=== PATIENT | male | born 1960 | race Caucasian/White ===

== ENCOUNTER 2023-09-28 14:24 | Outpatient (CLI) | payer MEDICAID ==
--- NOTE | 2023-09-28 15:23 | Sleep Patient Instructions ---
Sleep Center Visit Summary - Patient Visit Information Reason for Visit: Initial consult for evaluation of sleep disordered breathing and other sleep issues. - Patient Instructions Instructions Attached: Sleep Study, Sleep Study Home Monitor Additional Instructions: You will be completing a sleep study, either an in-lab polysomnography (PSG) or home sleep study (HST). You will follow-up in the sleep care office after the sleep study is completed to hear the results and talk about therapy, if needed. You will be called by our office staff to schedule this appointment, but you may contact us with any questions. - Clinic Information Contact: [facility] [address] [place] [id number] [email or web address] T: [phone]
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
[2023-09-28 15:34] VITALS: BP 142/90; O2SAT 98
== END 2023-09-28 14:25 | disposition home or self-care (01) ==
LOC: SC 14:24
PROVIDERS: ATTEND Nurse Practitioner Family
DX: R53.83 Other fatigue (principal); G47.8 Other sleep disorders; R06.83 Snoring; R06.81 Apnea, not elsewhere classified; I10 Essential (primary) hypertension; E66.9 Obesity, unspecified; Z68.33 Body mass index [BMI] 33.0-33.9, adult; F90.9 Attention-deficit hyperactivity disorder, unspecified type
CPT/HCPCS: 99203; 99212

== ENCOUNTER 2023-10-30 19:19 | Outpatient (CLI) | payer MEDICAID | END 2023-10-30 19:20 | disposition home or self-care (01) | LOC: SC 19:19 | PROVIDERS: ATTEND Nurse Practitioner Family | DX: G47.33 Obstructive sleep apnea (adult) (pediatric) (principal); E66.9 Obesity, unspecified; Z68.33 Body mass index [BMI] 33.0-33.9, adult; G47.61 Periodic limb movement disorder | CPT/HCPCS: 95810 ==

== ENCOUNTER 2023-11-08 09:00 | Outpatient (CLI) | payer MEDICAID ==
--- NOTE | 2023-11-08 08:46 | SLEEP CARE CONSULTATION ---
Information from patient questionnaire entered by Brandy Ceballos. I have reviewed and concur with the information entered by Brandy Ceballos. This document represents the service I personally performed and the decisions made by , Deanne Cuevas ARNP. History of Present Illness Service Date and Time: 11/08/2023 0840 Initial [place] Sleepiness Scale score: 10 (09/20/23) Current [place] Sleepiness Scale score: 7 (11/08/23) Additional HPI information: VAHID MATAMOROS returns via video appointment for follow up and results of the recently performed polysomnography. The sleep study showed mild obstructive sleep apnea with an average AHI of 7.7 and sadie oxygen saturation of 87%. I explained the pathophysiology behind obstructive sleep apnea. We then spent quite a bit of time discussing different treatment options. For mild obstruc tive sleep apnea, surgery and oral appliance are alternatives to nasal CPAP therapy but in moderate or severe cases, nasal CPAP is the most effective and reliable treatment. Because apnea is primarily in supine position, then positional management therapy could be effective. Methods discussed such as positioning with pillows, using a T-shirt with tennis balls in the back, and shown commercial products that have a pillow format on back to prevent supine sleep. I reviewed the impact of weight changes on sleep apnea and strongly recommended losing weight. After some discussion, the patient opted to go with positional therapy. Patient was cautioned about risks of drowsy driving until sleepiness symptoms resolve. Patient denies drowsy driving. Sleep Study - Results Type of Sleep Study: Polysomnography (COMPLETED 10/30/23) Prior sleep studies: Yes (PATTIE CRUZ) Polysomnography/Home Sleep Study results: IMPRESSION: The quality of the study is good. The patient had slightly reduced sleep efficiency due to frequent awakenings during the night. The sleep architecture was abnormal for sleep fragmentation and reduced amount of time spent in slow wave sleep (N3). Respiratory monitoring showed mild o bstructive sleep apnea-hypopnea (AHI = 7.7) associated with frequent arousals, oxyhemoglobin desaturation and mild hypoxia (sadie oxygen saturation of 87%). The respiratory events occurred almost exclusively during supine sleep (supine AHI = 21.4; non-supine = 2.54). Snore was infrequent and light in intensity. There was moderate periodic leg movement of sleep not contributing to the sleep fragmentation. Cardiac rhythm was normal sinus rhythm without significant arrhythmia. No abnormal behavior (parasomnia) observed during the night. Allergies and Home Medications Known drug allergies: Yes (morphine) Drug allergies reviewed: Yes Home medication list reviewed: Yes (no changes) Allergy and home medication list: Allergies morphine Allergy (Verified 09/28/23 14:28) Home Medications Medication Instructions Recorded Confirmed Last Taken Type Aspirin [Vazalore] See Rx Instructions .ROUTE .COMPLEX 09/28/23 11/08/23 Unknown History Cholecalciferol (Vitamin D3) See Rx Instructions .ROUTE .COMPLEX 09/28/23 11/08/23 Unknown History [Vitamin D3] Levothyroxine [Synthroid] See Rx Instructions .ROUTE .COMPLEX 09/28/23 11/08/23 Unknown History Magnesium Oxide [Magnesium] See Rx Instructions .ROUTE .COMPLEX 09/28/23 11/08/23 Unknown History Meloxicam See Rx Instructions .ROUTE .COMPLEX 09/28/23 11/08/23 Unknown History Mv-Min/Folic/K1/Lycopen/Lutein See Rx Instructions .ROUTE .COMPLEX 09/28/23 11/08/23 Unknown History [Centrum Silver Men Tablet] Propranolol [Inderal] See Rx Instructions .ROUTE .COMPLEX 09/28/23 11/08/23 Unknown History Tizanidine HCl See Rx Instructions .ROUTE .COMPLEX 09/28/23 11/08/23 Unknown History Vitamin B2 See Rx Instructions .ROUTE .COMPLEX 09/28/23 11/08/23 Unknown History hydroCHLOROthiazide [Hydrodiuril] See Rx Instructions .ROUTE .COMPLEX 09/28/23 11/08/23 Unknown History Review of Systems Review of systems same as previous: Yes (NO CHANGE) Physical Exam Vital signs obtained and entered by: BRANDY De Leon MA Blood Pressure: 135/79 (PER PT) Height: 6 ft 1 in (PER PT) Weight: 250 lb (PER PT) Body Mass Index: 33.0 BMI Classification: Obese Impression and Plan 1. Obstructive Sleep Apnea-Hypopnea Syndrome, mild, with lowest oxygen saturation of 87%. Obviously this is the cause of the patients symptoms of unrefreshed sleep, and excessive daytime sleepiness. Positive pressure therapy could benefit hypertension and attention deficit. Since patients apnea is primarily in supine position, patient advised that he could try positional therapy and he agreed with plan. He is also advised to lose weight as this will reduce snoring and apnea. Follow up is scheduled in 1-2 months to check effectiveness and if further evaluation indicated such a repeat study in supine position only to see if additional treatment indicated. 2. Periodic limb movement, moderate, that did not fragment patients sleep. Per iodic limb movement of sleep (PLMS) is characterized by episodes of repetitive limb movements that occur during sleep and usually involve the lower limbs. The etiology is unknown. Sleep hygiene methods can also improve sleep as well as lifestyle changes such as regular exercise. Patient was advised that no treatment is needed at this time. If symptoms increase, then further evaluation is indicated. 3. Obesity, unspecified. Currently patients BMI is 33. Obesity increases the risk of apnea, CPAP pressure requirements and overall health risks especially cardiovascular and diabetes. Thus patient is advised to lose weight. * Positional therapy. * Attempt to lose weight. * Avoid supine sleep * The patient is again cautioned about driving until sleepiness completely resolves. * Return in 1-2 months. I will assess response to therapy at that time. Counseling Topics: Sleeping position, Weight loss health impact Follow up with Sleep Care in: 1-2 months Visit Type: Telehealth Video Video Type: Jeremy Patient Location: Home Location of Provider: Office Patient agrees and consents to this telehealth visit type: Yes Patient agrees to have their insurance billed: Yes Time Spent with Patient (minutes): 16 Provider Statement: I spent 100% of the Telehealth Video Call with the patient with greater than 50% spent counseling the patient and coordination of care.
[2023-11-08 08:50] VITALS: BP 135/79
== END 2023-11-08 09:01 | disposition home or self-care (01) ==
LOC: SC 09:00
PROVIDERS: ATTEND Nurse Practitioner Family
DX: G47.33 Obstructive sleep apnea (adult) (pediatric) (principal); G47.61 Periodic limb movement disorder; E66.9 Obesity, unspecified; Z68.33 Body mass index [BMI] 33.0-33.9, adult

== ENCOUNTER 2023-12-20 11:41 | Outpatient (CLI) | payer MEDICAID ==
--- NOTE | 2023-12-20 08:53 | SLEEP CARE CONSULTATION ---
Information from patient questionnaire entered by Brandy Ceballos. I have reviewed and concur with the information entered by Brandy Ceballos. This document represents the service I personally performed and the decisions made by me, Deanne Cuevas ARNP. History of Present Illness Service Date and Time: 12/20/2023 0840 Previous diagnosis: Mild, Obstructive Sleep Apnea-Hypopnea Syndrome AHI: 7.7 (in 10/30/2023) Reason for follow up: other (SIX WEEK F/U POSITIONAL) Prior sleep studies: Yes (PATTIE SEBASTIANFARHAT) Type of Sleep Study: Polysomnography (COMPLETED 10/30/23) HPI additional information: VAHID MATAMOROS was diagnosed to have mild, AHI 7.7, obstructive sleep apnea- hypopnea syndrome and returns via video appointment today for positional therapy six week follow-up. Sleep Study - Results Type of Sleep Study: Polysomnography (COMPLETED 10/30/23) Prior sleep studies: Yes (PATTIE SEBASTIANFARHAT) CPAP Compliance Data Compliance data discussion: He is using a body pillow to help him stay on his side. He says it is working well and he is staying off his back. His has told him that she thinks he is sleeping better and appears more rested. Subjective On therapy, patient: reports: sleeping better, awakening more refreshed, being more awake and alert during the day, more rested overall. denies: drowsiness while driving Initial [place] Sleepiness Scale score: 10 (09/20/23) Current [place] Sleepiness Scale score: 9 (12/20/23) Allergies and Home Medications Known drug allergies: Yes (morphine) Drug allergies reviewed: Yes Home medication list reviewed: Yes (no changes) Allergy and home medication list: Allergies morphine Allergy (Verified 12/18/23 09:02) Review of Systems Review of systems same as previous: Yes (NO CHANGE) Physical Exam Vital signs obtained and entered by: BRANDY De Leon MA Height: 6 ft 1 in (PER PT) Weight: 245 lb (PER PT) Weight change since last visit: 5 lb loss Body Mass Index: 32.3 BMI Classification: Obese Impression and Plan 1. Obstructive Sleep Apnea-Hypopnea Syndrome, mild. On positional therapy, the patient has better sleep quality and is more rested overall. Patient has been using a body pillow to stay on his sides and says he is sleeping much better. His . That she can tell he is sleeping better and he has more energy during the day. He is walking daily and has good energy. He says with some medication changes his blood pressure is also improving. He feels the positional therapy is sustainable and wants to continue with it. We will follow-up with him in 6 months. Patient's apnea severity and rationale for treatment to reduce apnea, improve sleep quality and reduce cardiovascular and cerebrovascular events was reviewed. I also reviewed the benefit of consistent device use of CPAP for hypertension and attention deficit. 2. Obesity, unspecified. Currently patients BMI is 32.3. He has lost weight. He is walking daily. Obesity increases the risk of apnea, CPAP pressure requirements and overall health risks especially cardiovascular and diabetes. Thus patient is advised to continue to try to lose weight. * Continue positional therapy * Avoid sleeping supine * Attempt to lose weight * Call this office if any problems * Return for follow up in 6 months, or sooner if concerns arise Counseling Topics: Sleeping position, Weight loss health impact Follow up with Sleep Care in: 6 months (for positional therapy) Visit Type: Telehealth Video Video Type: Jeremy Patient Location: Home Location of Provider: Office Patient agrees and consents to this telehealth visit type: Yes Patient agrees to have their insurance billed: Yes Time Spent with Patient (minutes): 11 Provider Statement: I spent 100% of the Telehealth Video Call with the patient with greater than 50% spent counseling the patient and coordination of care.
== END 2023-12-20 11:42 | disposition home or self-care (01) ==
LOC: SC 11:41
PROVIDERS: ATTEND Nurse Practitioner Family
DX: G47.33 Obstructive sleep apnea (adult) (pediatric) (principal)

== ENCOUNTER 2024-01-12 06:56 | Outpatient (CLI) | payer MEDICAID ==
[2024-01-12 07:27] LABS: BASOPHILS % (AUTO) 0.6 %; EOSINOPHILS # (AUTO) 0.3 10^3/uL (0.0-0.7); HCT - HEMATOCRIT 47.7 % (42.0-52.0); HGB - HEMOGLOBIN 15.2 g/dL (14.0-18.0); LYMPHOCYTES # (AUTO) 1.7 10^3/uL (1.5-3.5); LYMPHOCYTES % (AUTO) 25.6 %; MEAN CORPUSCULAR HEMOGLOBIN 28.7 pg (27.0-31.0); MEAN CORPUSCULAR HGB CONC 31.9 g/dL (32.0-36.0); MEAN CORPUSCULAR VOLUME 90.2 fL (80.0-94.0); MEAN PLATELET VOLUME 9.8 fL (7.4-11.4); MONOCYTES # (AUTO) 0.5 10^3/uL (0.0-1.0); MONOCYTES % (AUTO) 8.2 %; NEUTROPHILS % (AUTO) 60.4 %; PLT - PLATELET COUNT 332 10^3/uL (130-450); RED BLOOD COUNT 5.29 10^6/uL (4.70-6.10); RED CELL DISTRIBUTION WIDTH 13.2 % (12.0-15.0); WHITE BLOOD COUNT 6.6 x10^3/uL (4.8-10.8)
[2024-01-12 07:31] LABS: ALBUMIN 4.3 g/dL (3.2-5.5); ALBUMIN/GLOBULIN RATIO 1.3 (1.0-2.2); ALKALINE PHOSPHATASE 62 IU/L (42-121); ALT ALANINE AMINOTRANSFERASE 15 IU/L (10-60); AST ASPARTATE AMINOTRANSFERASE 18 IU/L (10-42); BILIRUBIN,TOTAL 0.6 mg/dL (0.2-1.0); BUN - BLOOD UREA NITROGEN 18 mg/dL (6-20); CALCIUM 9.3 mg/dL (8.5-10.3); CARBON DIOXIDE - CO2 30 mmol/L (21-32); CHLORIDE 102 mmol/L (101-111); CHOL/HDL RATIO 4.9 (<5.0); CHOLESTEROL 181 mg/dL; GFR - MDRD 75 (>89); GLUCOSE 108 mg/dL (74-104); HDL CHOLESTEROL 37 mg/dL; LDL CHOLESTEROL,CALCULATED 89 mg/dL; LDL/HDL RATIO 2.4 (<3.6); SODIUM 138 mmol/L (135-145); TOTAL PROTEIN 7.5 g/dL (6.4-8.9); TRIGLYCERIDES 274 mg/dL (48-352); VLDL CHOLESTEROL 55 mg/dL
[2024-01-12 07:42] LABS: THYROID STIMULATING HORMONE 1.35 uIU/mL (0.34-5.60)
[2024-01-12 11:34] LABS: ESTIMATED AVERAGE GLUCOSE 114 mg/dL (70-100); HEMOGLOBIN A1c% 5.6 % (4.27-6.07)
== END 2024-01-12 06:57 | disposition home or self-care (01) ==
LOC: LAB 06:56
PROVIDERS: ATTEND Physician Assistant Medical
DX: E03.8 Other specified hypothyroidism (principal); I10 Essential (primary) hypertension; E78.5 Hyperlipidemia, unspecified; Z80.42 Family history of malignant neoplasm of prostate; R23.8 Other skin changes
CPT/HCPCS: 36415; 80050; 80061; 83036; 83721; 84153

== ENCOUNTER 2024-02-15 09:49 | Outpatient (CLI) | payer OTHER ==
--- NOTE | 2024-02-15 12:43 | MRI Report ---
PROCEDURE: Cervical Spine WO INDICATIONS: CERVICAL RAFICULOPATHY TECHNIQUE: Noncontrast sagittal T1 spin echo and T2 fast spin echo, sagittal STIR, foraminal oblique sagittal T2 fast spin echo, and axial gradient echo or T2 fast spin echo through the cervical spine. COMPARISON: None. FINDINGS: Image quality: Excellent. Alignment and Curvature: Straightening of normal cervical lordosis. Bone Marrow: Marrow demonstrates normal overall signal. Spinal Cord: Small focus of STIR hyperintense signal within the right anterior lateral aspect of the spinal cord at C2 (4/10). Otherwise, spinal cord has normal size and signal. No cerebellar tonsillar herniation. Paraspinous Soft Tissues: No paravertebral masses. Prevertebral soft tissues are normal in thicknes s. C2-C3: Disc desiccation and small central disc protrusion. No central canal or neuroforaminal stenos is. C3-C4: Disc desiccation and height loss. Posterior disc ossify complex abutting the ventral cord. M ild to moderate central canal stenosis. Facet and uncovertebral arthropathy. Moderate bilateral neuro foraminal stenosis. C4-C5: Disc desiccation and height loss. Posterior disc ossify complex. Mild central canal stenosis. Facet and uncovertebral arthropathy. Mild bilateral neuroforaminal stenosis. C5-C6: Disc desiccation and height loss. Posterior disc osteophyte complex. Moderate central canal s tenosis. Facet and uncovertebral arthropathy. Moderate to severe bilateral neuroforaminal stenosis. C6-C7: Disc desiccation and height loss. Posterior disc ossify compromise. Moderate central canal st enosis. Facet and uncovertebral arthropathy. Moderate bilateral neuroforaminal stenosis. C7-T1: Disc desiccation and mild posterior disc osteophyte complex. No central canal or neuroforamin al stenosis. IMPRESSION: 1.Multilevel degenerative changes of the cervical spine as described above. 2.There is moderate central canal stenosis at C5-C6 and C6-C7. 3.Moderate to severe bilateral neuroforaminal stenosis at C5-C6. 4.Small STIR hyperintense lesion within the right anterior the cord at C2. This is nonspecific. Etiol ogies such as a demyelinating process is not excluded and clinical correlation is recommended. Reviewed by: Neal Pantoja MD on 02/15/2024 12:42 PM PDT Approved by: Neal Pantoja MD on 02/15/2024 12:42 PM PDT Station ID: [id number]
== END 2024-02-15 09:50 | disposition home or self-care (01) ==
LOC: DI 09:49
PROVIDERS: ATTEND Physician Assistant Medical
DX: M50.21 Other cervical disc displacement, high cervical region (principal); M47.812 Spondylosis without myelopathy or radiculopathy, cervical region; M50.31 Other cervical disc degeneration, high cervical region; M48.02 Spinal stenosis, cervical region